=== PATIENT | male | born 1985 | race Caucasian/White ===

== ENCOUNTER 2016-10-23 21:27 | Inpatient (IN) | payer BC ==
[~2016-10-23] VITALS: Ht 162.6 cm; Wt 69.7 kg
[2016-10-23 23:31] VITALS: BP 109/73; TEMP 37.4; O2SAT 98; Ht 162.6 cm; Wt 69.7 kg
[2016-10-23] MEDS ORDERED: INSULIN IV INFUSION PROTOCOL STA (23:31)
[2016-10-23] MEDS ORDERED: GLUCOSE 10 TABS/TUBE PO PRN (23:45)
[2016-10-23] MEDS ORDERED: GLUCOSE 40% GEL 15 GM TUBE PO PRN (23:45)
[2016-10-23] MEDS ORDERED: DKA GOAL RANGE 150-250 mg/dl 1 EA ONE (23:45)
[2016-10-23] MEDS ORDERED: PENDING D5NSS IVF SCH (23:45)
[2016-10-23] MEDS ORDERED: MODERATE STRESS LEVEL ONE (23:45)
[2016-10-23] MEDS ORDERED: GLUCAGON FOR INJ 1 MG VIAL SQ PRN (23:45)
[2016-10-23] MEDS ORDERED: DC ALL PREVIOUSLY ORDERED DIABETES MEDS ONE (23:45)
[2016-10-23] MEDS ORDERED: DEXTROSE 50% 50 ML SYR IV PRN (23:45)
[2016-10-24] VITALS (20 sets, daily range): BP systolic 98–117; BP diastolic 65–80; PULSE 87–102; TEMP 37–38.4; O2SAT 93–98
[2016-10-24] LABS: COMPLETE YES; HEMATOCRIT 38.1 % (42-52); IG% 0.2 %; LYMPH % 14.4 %; LYMPH ABS # 1.17 K/uL (1.2-3.4); MEAN CELL VOLUME 79.4 fL (80-100); MEAN CORPUSCULAR HGB CONC 36.5 g/dl (32-36); MEAN PLATELET VOLUME 9.3 fL (7.4-10.4); MONO % 10.5 %; NEUT % 74.9 %; PLATELET COUNT 166 K/uL (130-400); WHITE BLOOD COUNT 8.11 K/uL (4.8-10.8)
[2016-10-24 00:07] LABS: ISTAT ARTERIAL BLOOD GAS HCO3 11 meq/L (19-24); ISTAT ARTERIAL BLOOD GAS PCO2 25 mmHg (35-46); ISTAT ARTERIAL BLOOD GAS PO2 95 mmHg (80-95); ISTAT ARTERIAL BLOOD GAS pH 7.23 (7.35-7.45); ISTAT CARBON DIOXIDE 11 mEq/l (24-31); ISTAT HEMATOCRIT 37 % (42-52); ISTAT HEMOGLOBIN 12.6 g/dl (14.0-18.0); ISTAT SODIUM 137 mEq/L (135-144)
[2016-10-24] MEDS ORDERED: INSULIN HUMAN REGULAR IV BOLUS 1.5 UNIT in SYRINGE 0 ML IV SCH (00:15)
[2016-10-24 00:18] LABS: BLOOD UREA NITROGEN 19 mg/dl (7-18); BUN/CREATININE RATIO 14.8 (10-20); CALCIUM 7.8 mg/dl (8.5-10.1); CARBON DIOXIDE 14 mmol/L (21-32); CHLORIDE 110 mmol/L (98-107); GLUCOSE 240 mg/dl (70-99); MAGNESIUM 2.2 mg/dl (1.8-2.4); POTASSIUM 4.3 mmol/L (3.5-5.1); SODIUM 139 mmol/L (136-145)
[2016-10-24] MEDS: INSULIN REGULAR 250 UNITS in SODIUM CHLORIDE 0.9% 250ML 250 ML IV SCH ×2 (00:22→11:30)
[2016-10-24 00:24] LABS: BETA-HYDROXYBUTYRATE 41.95 mg/dL (0.2-2.81); PHOSPHORUS 1.9 mg/dl (2.5-4.9)
--- NOTE | 2016-10-24 00:26 | Critical Care Consultation ---
Critical Care Consultation Date of Consultation: Oct 23, 2016. Late Entry Documentation Attending Physician: Radhames Amato MD Reason for Consultation: DKA History of Present Illness Attending: Dr. Jem Phillip Brandt Wheeler, preferred to be called [place], is a 31 yo male who was directly admitted from [facility] where he presented early today with intractable nausea, hyponatremia 129 (corrected Na of 136), acidosis (abg pH 7.15) and hyperglycemia (glucose 393). According to [facility] records the patient received 4L of IV NSS, 100u of Insulin Aspart @ 2u.hr, and eventually D5w with NSS @ 250 during transport. Pt corrected to the high 200's prior to leaving [facility]. His U/A there was +2 Ketones, neg CXR and EKG. Admission into [facility] was declined by their physician and Dr. Amato of [facility] accepted transfer here. Pt arrived to the unit alert and oriented but drowsy. His Eduarda, was present at the bedside. He stated that he has known he has "Type 2 diabetes for 12 years", at which point he received Insulin for the first and only time. He denies knowledge of prior DKA/hospitalization for hyperglycemia. He states he has never taken anything for his diabetes; including Metformin. He states he only occasionally takes albuterol for asthma, but can not identify triggers other than illness for his asthma. He denies polyuria, polydipsia, or other signs of hyperglycemia. He does not have a special diet. Pt states he had minimal abd pain the goes around the upper quadrants. He was not currently feeling nauseous on my exam, but had received Zofran prior to arrival. Pt states that he has had a cough, hot flashes and chills, general malaise and body aches since about Wednesday. His 3 children had recently all been sick with similar symptoms. Pt denies excessive use of ETOH. Occasional shots and rum, approx 2-3 times/month. He denies any significatn past medical history; including of gall stones. PT denied chest pain/pressure, awareness of tachyarrhythmias. Pt denied trouble breathing, shortness of breath, diarrhea, constipation, numbness/tingling of extremities. Past Medical/Surgical History Past Medical History: Asthma Diabetes Mellitus DKA Past Surgical History: Pt denies any prior surgical procedure Family History Mother and Grandmother DM2 Otherwise Pt denies any positives in Family history. 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 [employer]) Allergies Coded Allergies: No Known Allergies (Unverified , 10/24/16) Current Inpatient Medications Current Inpatient Medications Medications (Trade) Dose Ordered Sig/Dasha Route Start Time Stop Time Status Last Admin Dose Admin Insulin Aspart (novoLOG ASPART) SLIDING SCALE HS SC 10/24/16 08:00 11/23/16 07:59 Miscellaneous Information 1 ea 1 ea Q2H N/A 10/23/16 23:45 11/22/16 23:44 Insulin Human Regular/Sodium Chloride (novoLIN-R/Nss 250ml) 252.5 ml @ 0 mls/hr DAILY@1130 IV 10/24/16 00:15 11/23/16 00:14 Glucose (Glucose 40% Gel) UD PRN PO 10/23/16 23:45 11/22/16 23:44 Glucose (Glucose Chew Tab) 1 tabs UD PRN PO 10/23/16 23:45 11/22/16 23:44 Dextrose (Dextrose 50% 50ML Syringe) 50 ml UD PRN IV 10/23/16 23:45 11/22/16 23:44 Glucagon 1 mg 1 mg UD PRN SQ 10/23/16 23:45 11/22/16 23:44 Potassium Chloride/Dextrose/ Sod Cl (D5W And 1/2nss + 20meq KCl) 1,000 ml @ 200 mls/hr Q5H IV 10/24/16 00:15 11/23/16 00:14 UNV Review of Systems 12 systems reviewed and negative other than previously mentioned in the HPI. Physical Exam Date Time Temp Pulse Resp B/P Pulse Ox O2 Delivery O2 Flow Rate FiO2 10/23/16 23:31 37.4 18 109/73 98 Room Air Vital Signs - as noted Laboratory Data - as noted Physical Exam: General - NAD, drowsy Eyes - PERRL, EOMI No icterus, gaze conjugate ENT - Mucosa moist, no lesions or candidiasis Neck - Supple, trachea midline, no masses or lymphadenopathy, no JVD or bruits Lungs - No paradoxical chest wall movement, clear to auscultation bilaterally, slightly diminished in the bases, no wheezes, rales, or rhonchi Heart - Reg rate and rhythm, No murmur, rubs, clicks, or gallops appreciated Abdomen - BS present, no bruits noted, tympanic to percussion, soft, nontender, nondistended, no organomegaly Extremities - No edema, pedal pulses intact Neuro - A&O X 4 Strength extremities equal and appropriate bilaterally Reflexes: Bicep, brachioradialis, patellar, and plantar normal and equal CN:PERRL, EOMI, no facial asymmetry, uvula/tongue midline Laboratory Results Last 24 Hours Test 10/23/16 23:35 10/23/16 23:55 10/23/16 23:56 White Blood Count 8.11 K/uL Red Blood Count 4.80 M/uL Hemoglobin 13.9 g/dL Hematocrit 38.1 % Mean Corpuscular Volume 79.4 fL Mean Corpuscular Hemoglobin 29.0 pg Mean Corpuscular Hemoglobin Concent 36.5 g/dl Platelet Count 166 K/uL Mean Platelet Volume 9.3 fL Neutrophils (%) (Auto) 74.9 % Lymphocytes (%) (Auto) 14.4 % Monocytes (%) (Auto) 10.5 % Eosinophils (%) (Auto) 0.0 % Basophils (%) (Auto) 0.0 % Neutrophils # (Auto) 6.07 K/uL Lymphocytes # (Auto) 1.17 K/uL Monocytes # (Auto) 0.85 K/uL Eosinophils # (Auto) 0.00 K/uL Basophils # (Auto) 0.00 K/uL Bedside Hemoglobin 12.6 g/dl Bedside Hematocrit 37 % RDW Standard Deviation 36.6 fL RDW Coefficient of Variation 12.6 % Immature Granulocyte % (Auto) 0.2 % Immature Granulocyte # (Auto) 0.02 K/uL Bedside Blood Gas pH (LAB) 7.23 Bedside Blood Gas pCO2 (LAB) 25 mmHg Bedside Blood Gas pO2 (LAB) 95 mmHg Bedside Blood Gas HCO3 (LAB) 11 meq/L Bedside Blood Gas Total CO2 11 mEq/l Bedside Blood Gas Base Excess (LAB) -17.0 meq/L Bedside Blood Gas O2 Saturation 96.0 % Bedside Sodium 137 mEq/L Sodium Level 139 mmol/L Bedside Potassium 4.2 mEq/L Potassium Level 4.3 mmol/L Chloride Level 110 mmol/L Carbon Dioxide Level 14 mmol/L Anion Gap 15.0 mmol/L Blood Urea Nitrogen 19 mg/dl Creatinine 1.30 mg/dl Est Creatinine Clear Calc Drug Dose 69.0 ml/min Estimated GFR () 84.3 Estimated GFR (Non- 72.7 BUN/Creatinine Ratio 14.8 Random Glucose 240 mg/dl Calcium Level 7.8 mg/dl Phosphorus Level 1.9 mg/dl Magnesium Level 2.2 mg/dl Troponin I < 0.015 ng/ml Lipase 769 U/L Beta-Hydroxybutyric Acid 41.95 mg/dL Diagnostic Results CXR: at [facility] Per Record Normal EKG @ [facility] ICU: NSR 89bpm, QTc 425 Assessment & Plan (1) DKA (diabetic ketoacidoses) (2) Diabetes mellitus (3) Metabolic acidosis Endocrine: DKA Pt states DM2 since age 19. Denies prior DKA; however, did state he received Insulin to lower his sugar quickly when diagnosed. DKA likely secondary to non-compliance with DM and concurrent illness. Denies regular ETOH use, Unlikely Pancreatitis as Shorter Criteria < 3, trop Neg x 2 with NSR on EKG. PCR Flu Pending Anion Gap 15 * DKA Protocol Ordered * Glycemic Consult placed to pharmacy * Continue D5 with .045% NSS +20K @ 200mLs/hr * Insulin goal 150-200, K Goal 4-5 * Frequent Monitoring BUN, Electrolytes, pH, Glucose Electrolytes: Corrected Na 142 on admission K: 4.3 * Electrolytes q 4hrs * Continue Fluids as above * Continue to replete K in fluids, as it will drive intracellularly with correction of DKA: Goal 4-5 Cardiac: EKG reviewed, denies chest pain or discomfort * Repeat EKG in AM, Increased risk of arrhythmia secondary to electrolyte shifts in DKA * Monitor on telemetry ID: Currently Afebrile, WBC: 8.11 Lactic Acid: 1.9 ( [facility]) * Rule Out Infection * PCR Flu pending * CBC no leukocytosis or left shift * Monitor Fever Curve * Check Procalcitonin Pulmonary: 98% on room air Hx of Asthma * Supplemental O2 as needed * Duoneb PRN wheezing * Monitor on telemetry GI: Pt seen at [facility] for Vomiting and Abd Pain. Well controlled currently * DM 1 Diet as tolerated * No indication for GI Prophylaxis at this time : BUN/Cr: 19/1.3 * Follow Daily Labs * Monitor BUN q 4hrs now until DKA resolves * Fluids resuscitation as noted above in DKA Neuro: A & O x 4 No pain currently * Tylenol PO PRN Pain Access: [address], no indication for central/arterial access at this time. DVT Prophylaxis: SCDs in place, Heparin 5,000U sq Q8hrs CCT: 45 minutes; Not including any billable procedures. Thank you for including us in the care of this patient. Please review Dr. Jem Phillip's addendum for further recommendations. I agree with assessment and plan of Fara Krishna PA-C.
[2016-10-24 01:03] LABS: ALKALINE PHOSPHATASE 69 U/L (45-117); ALT/SGPT 30 U/L (12-78); AST/SGOT 13 U/L (15-37)
[2016-10-24] MEDS ORDERED: PHARMACY GLYCEMIC MGMT CONSULT PRN (01:21)
[2016-10-24] MEDS ORDERED: ACETAMINOPHEN 325 MG TAB PO PRN (01:30)
--- NOTE | 2016-10-24 01:50 | History and Physical ---
History & Physical Date & Time of Service: Oct 24, 2016 at 01:37 Chief Complaint: DKA Primary Care Physician: No Doctor, Assigned History of Present Illness Source: patient 31 y/o M w/history of diabetes - type is not clear - medical noncompliance. Presents as a direct transfer from an outside hospital due to DKA. Pt states that he has been having nausea and abdominal pain for up to one week. At the time of presentation, labs were consistent with severe DKA. He denies CP, SOB, fevers, diarrhea, dysuria. Past Medical/Surgical History DM - pt states he was diagnosed at age 15, possibly with type 2 which is unlikely. He states that he has not complied with medications for an extended period. 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 [employer] Smoking Status: Never Smoker Allergies Coded Allergies: No Known Allergies (Unverified , 10/24/16) Review of Systems Constitutional: + fatigue, + weakness, No chills, No fever, No sweats Eyes: No eye pain, No worsening of vision ENT: No hearing loss, No nasal symptoms, No unusual epistaxis Respiratory: No cough, No sputum, No wheezing Cardiovascular: No PND, No chest pain, No orthopnea Abdomen: + nausea, + pain, No diarrhea, No vomiting Musculoskeletal: No joint pain, No muscle pain Genitourinary - Male: No dysuria, No hematuria, No urinary frequency, No urinary urgency Neurologic: + weakness, No memory loss, No paralysis Psychiatric: No depression symptoms Endocrine: + fatigue Hematologic / Lymphatic: No abnormal bleeding/bruising Integumentary: No rash Allergic / Immunologic: No environmental allergies Physical Exam Vital Signs Date Time Temp Pulse Resp B/P Pulse Ox O2 Delivery O2 Flow Rate FiO2 10/24/16 00:00 98 Room Air 10/24/16 00:00 37.4 91 19 111/80 98 Room Air 10/23/16 23:31 37.4 18 109/73 98 Room Air General Appearance: no apparent distress, + pertinent finding (Pt appears weak and dehydrated) Head: normocephalic, atraumatic Eyes: normal inspection, EOMI ENT: normal ENT inspection, hearing grossly normal, TMs normal, + pertinent finding (dry mucosal membranes) Neck: supple, no adenopathy, thyroid normal, no JVD Respiratory/Chest: chest non-tender, lungs clear, normal breath sounds Cardiovascular: regular rate, rhythm, no edema, no gallop Abdomen/GI: normal bowel sounds, non tender, soft Back: normal inspection, no CVA tenderness Extremities/Musculoskelatal: normal inspection, no calf tenderness, normal capillary refill, no pedal edema, normal range of motion 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, no motor/sensory deficits, alert, normal mood/affect, normal reflexes, oriented x 3 Skin: normal color, warm/dry, no rash Diagnostics Laboratory Results Results Past 24 Hours Test 10/23/16 23:35 10/23/16 23:55 10/24/16 00:09 10/24/16 00:30 Range/Units White Blood Count 8.11 4.8-10.8 K/uL Red Blood Count 4.80 4.7-6.1 M/uL Hemoglobin 13.9 14.0-18.0 g/dL Hematocrit 38.1 42-52 % Mean Corpuscular Volume 79.4 80-100 fL Mean Corpuscular Hemoglobin 29.0 25-34 pg Mean Corpuscular Hemoglobin Concent 36.5 32-36 g/dl Platelet Count 166 130-400 K/uL Mean Platelet Volume 9.3 7.4-10.4 fL Neutrophils (%) (Auto) 74.9 % Lymphocytes (%) (Auto) 14.4 % Monocytes (%) (Auto) 10.5 % Eosinophils (%) (Auto) 0.0 % Basophils (%) (Auto) 0.0 % Neutrophils # (Auto) 6.07 1.4-6.5 K/uL Lymphocytes # (Auto) 1.17 1.2-3.4 K/uL Monocytes # (Auto) 0.85 0.11-0.59 K/uL Eosinophils # (Auto) 0.00 0-0.5 K/uL Basophils # (Auto) 0.00 0-0.2 K/uL Bedside Hemoglobin 12.6 14.0-18.0 g/dl Bedside Hematocrit 37 42-52 % RDW Standard Deviation 36.6 36.4-46.3 fL RDW Coefficient of Variation 12.6 11.5-14.5 % Immature Granulocyte % (Auto) 0.2 % Immature Granulocyte # (Auto) 0.02 0.00-0.02 K/uL Bedside Blood Gas pH (LAB) 7.23 7.35-7.45 Bedside Blood Gas pCO2 (LAB) 25 35-46 mmHg Bedside Blood Gas pO2 (LAB) 95 80-95 mmHg Bedside Blood Gas HCO3 (LAB) 11 19-24 meq/L Bedside Blood Gas Total CO2 11 24-31 mEq/l Bedside Blood Gas Base Excess (LAB) -17.0 -9-1.8 meq/L Bedside Blood Gas O2 Saturation 96.0 90-95 % Bedside Sodium 137 135-144 mEq/L Sodium Level 139 136-145 mmol/L Bedside Potassium 4.2 3.3-5.0 mEq/L Potassium Level 4.3 3.5-5.1 mmol/L Chloride Level 110 98-107 mmol/L Carbon Dioxide Level 14 21-32 mmol/L Anion Gap 15.0 3-11 mmol/L Blood Urea Nitrogen 19 7-18 mg/dl Creatinine 1.30 0.60-1.40 mg/dl Est Creatinine Clear Calc Drug Dose 69.0 ml/min Estimated GFR () 84.3 Estimated GFR (Non- 72.7 BUN/Creatinine Ratio 14.8 10-20 Random Glucose 240 70-99 mg/dl Calcium Level 7.8 8.5-10.1 mg/dl Phosphorus Level 1.9 2.5-4.9 mg/dl Magnesium Level 2.2 1.8-2.4 mg/dl Total Bilirubin 0.4 0.2-1 mg/dl Direct Bilirubin 0.1 0-0.2 mg/dl Aspartate Amino Transf (AST/SGOT) 13 15-37 U/L Alanine Aminotransferase (ALT/SGPT) 30 12-78 U/L Alkaline Phosphatase 69 45-117 U/L Troponin I < 0.015 0-0.045 ng/ml Total Protein 7.3 6.4-8.2 gm/dl Albumin 3.3 3.4-5.0 gm/dl Lipase 769 73-393 U/L Beta-Hydroxybutyric Acid 41.95 0.2-2.81 mg/dL Bedside Glucose 264 70-99 mg/dl Test 10/24/16 01:09 Range/Units Bedside Glucose 243 70-99 mg/dl Microbiology Results 10/23/16 MRSA DNA Surveillance Screen - Final, Complete Specimen Negative for MRSA by DNA Probe Impression Assessment and Plan 31 y/o M w/history of diabetes - type is not clear - medical noncompliance. Presents as a direct transfer from an outside hospital due to DKA. Pt states that he has been having nausea and abdominal pain for up to one week. At the time of presentation, labs were consistent with severe DKA. He denies CP, SOB, fevers, diarrhea, dysuria. Severe DKA - labs improving with protocol including insulin drip, aggressive IVF and electrolyte replacement as needed. Will continue to monitor in the ICU until ketones clear, gap closes and pt is of a drip. Outreach Specialist was consulted. BMP, Mag, Phos, ABG or VBG q4h He will need training prior to d/c as he has not previously used insulin. Full code - Heparin prophylaxis Total time for this admit including review of labs , meds - discussion with pt and attending at [facility] - critical care time - 38 min Level of Care Critical Care Advanced Directives Existing Living Will: No Existing Power of Pool Installer: No Resuscitation Status FULL RESUSCITATION VTE Prophylaxis VTE Risk Assessment Done? Y/N: Yes Risk Level: Low Given or contraindicated: Unfractionated heparin SQ
[2016-10-24] MEDS: D5W AND 1/2NSS + 20MEQ KCL 1,000 ML IV SCH ×2 (01:57→06:24)
[2016-10-24 02:59] LABS: INFLUENZA A PCR Neg for Influ A (NEG)
[2016-10-24 03:01] LABS: INFLUENZA B PCR POS for Influ B (NEG)
[2016-10-24] MEDS ORDERED: OSELTAMIVIR PHOSPHATE 75 MG CAP PO ONE (03:01)
[2016-10-24 04:18] LABS: BASO % 0.2 %; BASO ABS # 0.01 K/uL (0-0.2); COMPLETE YES; HEMATOCRIT 37.2 % (42-52); IG% 0.2 %; LYMPH % 16.2 %; LYMPH ABS # 1.08 K/uL (1.2-3.4); MEAN CELL VOLUME 81.2 fL (80-100); MEAN CORPUSCULAR HGB CONC 35.8 g/dl (32-36); NEUT % 74.4 %; PLATELET COUNT 158 K/uL (130-400); RED BLOOD COUNT 4.58 M/uL (4.7-6.1); WHITE BLOOD COUNT 6.65 K/uL (4.8-10.8)
[2016-10-24 04:29] LABS: INR 0.9 (0.9-1.1); PARTIAL THROMBOPLASTIN RATIO 1.1; PROTHROMBIN TIME (PATIENT) 10.1 SECONDS (9.0-12.0)
[2016-10-24 04:35] LABS: BUN/CREATININE RATIO 13.2 (10-20); CALCIUM 7.7 mg/dl (8.5-10.1); CREATININE 1.3 mg/dl (0.60-1.40); PHOSPHORUS 1.7 mg/dl (2.5-4.9); POTASSIUM 4.2 mmol/L (3.5-5.1)
[2016-10-24 04:57] LABS: URINE APPEARANCE CLEAR (CLEAR); URINE BILIRUBIN NEG (NEG); URINE COLOR YELLOW; URINE NITRITE NEG (NEG); URINE PH 5.5 (4.5-7.5); URINE SPECIFIC GRAVITY 1.028 (1.000-1.030); UROBILINOGEN NEG (NEG)
[2016-10-24 04:58] LABS: MANUAL MICROSCOPIC REQUIRED? NO; REVIEW REQ? NO
[2016-10-24] MEDS: HEPARIN SOD 5000 UNIT/0.5 ML CARP SQ SCH ×3 (06:00→21:01)
[2016-10-24 06:04] LABS: ESTIMATED AVERAGE GLUCOSE 309 mg/dl; HA1C FLAG Normal (Normal)
[2016-10-24] MEDS ORDERED: INSULIN PROTOCOL GOAL RANGE ONE (07:45)
[2016-10-24] MEDS ORDERED: INSULIN ASPART 100 UNITS/ML 3 ML PEN SC SCH (08:00)
[2016-10-24] MEDS: OSELTAMIVIR PHOSPHATE 75 MG CAP PO SCH ×2 (08:07→19:51)
[2016-10-24 08:34] LABS: BUN/CREATININE RATIO 13.3 (10-20); CALCIUM 7.9 mg/dl (8.5-10.1); CREATININE 1.1 mg/dl (0.60-1.40); MAGNESIUM 1.9 mg/dl (1.8-2.4); POTASSIUM 3.9 mmol/L (3.5-5.1)
--- NOTE | 2016-10-24 08:39 | Critical Care Progress Note ---
Critical Care Progress Note Date of Service Oct 24, 2016. Attending Dr. Phillip Assessment & Plan (1) DKA (diabetic ketoacidoses) (2) Diabetes mellitus (3) Metabolic acidosis (4) Hemoglobin A1c 8.0 percent or greater (5) Influenza B Endocrine: DKA Pt states DM2 since age 19. Denies prior DKA; however, did state he received Insulin to lower his sugar quickly when diagnosed. DKA likely secondary to non-compliance with DM and concurrent illness. Denies regular ETOH use, Unlikely Pancreatitis as Brian Criteria < 3, trop Neg x 2 with NSR on EKG. PCR Flu Pending Anion Gap now 12 * DKA Protocol Ordered * Glycemic Consult placed to pharmacy * Continue D5 with .045% NSS +20K @ 200mLs/hr * Insulin goal 150-200, K Goal 4-5 * Frequent Monitoring BUN, Electrolytes, pH, Glucose Electrolytes: Corrected Na 142 on admission K: 4.3 * Electrolytes q 4hrs * Continue Fluids as above * Continue to replete K in fluids, as it will drive intracellularly with correction of DKA: Goal 4-5 Cardiac: EKG reviewed, denies chest pain or discomfort * Repeat EKG in AM, Increased risk of arrhythmia secondary to electrolyte shifts in DKA * Monitor on telemetry ID: Currently Afebrile, WBC: 8.11 Lactic Acid: 1.9 ( [facility]) On Tamiflu for influenza B5 days of treatment Pulmonary: 98% on room air Hx of Asthma GI: Pt seen at [facility] for Vomiting and Abd Pain. Well controlled currently * DM 1 Diet as tolerated * No indication for GI Prophylaxis at this time : BUN/Cr: 19/1.3 * Follow Daily Labs * Monitor BUN q 4hrs now until DKA resolves * Fluids resuscitation as noted above in DKA Neuro: A & O x 4 No pain currently * Tylenol PO PRN Pain Patient significantly improved, tolerating oral medications as soon as transitioned to subcutaneous insulin will be stable for downgraded to MedSur floor. Consults & Procedures Consultants: Glycemic control Critical care medicine: Kenji Procedures: Not applicable Data Medications: Current Inpatient Medications Medications (Trade) Dose Ordered Sig/Dasha Route Start Time Stop Time Status Last Admin Dose Admin Insulin Aspart SLIDING SCALE [facility] SC 10/24/16 08:00 11/23/16 07:59 10/24/16 08:15 2 UNITS Insulin Human Regular/Sodium Chloride (novoLIN-R/Nss 250ml) 252.5 ml @ 0 mls/hr DAILY@1130 IV 10/24/16 00:15 11/23/16 00:14 10/24/16 00:22 1.5 MLS/HR Glucose (Glucose 40% Gel) UD PRN PO 10/23/16 23:45 11/22/16 23:44 Glucose (Glucose Chew Tab) 1 tabs UD PRN PO 10/23/16 23:45 11/22/16 23:44 Dextrose (Dextrose 50% 50ML Syringe) 50 ml UD PRN IV 10/23/16 23:45 11/22/16 23:44 Glucagon 1 mg 1 mg UD PRN SQ 10/23/16 23:45 11/22/16 23:44 Potassium Chloride/Dextrose/ Sod Cl (D5W And 1/2nss + 20meq KCl) 1,000 ml @ 200 mls/hr Q5H IV 10/24/16 01:30 11/23/16 00:14 10/24/16 06:24 200 MLS/HR Miscellaneous Information (Consult Glycemic Management Pharmacy) 1 ea UD PRN N/A 10/24/16 01:21 11/23/16 01:20 Heparin Sodium (Porcine) (Heparin Sq 5000 Unit/0.5ml) 5,000 unit Q8 SQ 10/24/16 06:00 11/23/16 01:29 10/24/16 06:00 5,000 UNIT Acetaminophen (Tylenol Tab) 650 mg Q4H PRN PO 10/24/16 01:30 11/23/16 01:29 Oseltamivir Phosphate (Tamiflu Cap) 75 mg BID PO 10/24/16 09:00 10/29/16 08:59 10/24/16 08:07 75 MG I & O: 24-Hour Column 10/24/16 08:00 Intake Total 2204 ml Output Total 700 ml Balance 1504 ml Vital Signs: Date Time Temp Pulse Resp B/P Pulse Ox O2 Delivery O2 Flow Rate FiO2 10/24/16 06:00 101 19 113/73 93 10/24/16 04:00 94 Room Air 10/24/16 04:00 37.0 91 111/71 94 Room Air 10/24/16 02:01 95 16 108/67 96 10/24/16 00:00 98 Room Air 10/24/16 00:00 37.4 91 19 111/80 98 Room Air 10/23/16 23:31 37.4 18 109/73 98 Room Air Laboratory Results: Last 24 Hours Test 10/23/16 23:55 10/24/16 00:09 10/24/16 00:30 10/24/16 01:09 White Blood Count 8.11 K/uL Red Blood Count 4.80 M/uL Hemoglobin 13.9 g/dL Hematocrit 38.1 % Mean Corpuscular Volume 79.4 fL Mean Corpuscular Hemoglobin 29.0 pg Mean Corpuscular Hemoglobin Concent 36.5 g/dl Platelet Count 166 K/uL Mean Platelet Volume 9.3 fL Neutrophils (%) (Auto) 74.9 % Lymphocytes (%) (Auto) 14.4 % Monocytes (%) (Auto) 10.5 % Eosinophils (%) (Auto) 0.0 % Basophils (%) (Auto) 0.0 % Neutrophils # (Auto) 6.07 K/uL Lymphocytes # (Auto) 1.17 K/uL Monocytes # (Auto) 0.85 K/uL Eosinophils # (Auto) 0.00 K/uL Basophils # (Auto) 0.00 K/uL Bedside Hemoglobin 12.6 g/dl Bedside Hematocrit 37 % RDW Standard Deviation 36.6 fL RDW Coefficient of Variation 12.6 % Immature Granulocyte % (Auto) 0.2 % Immature Granulocyte # (Auto) 0.02 K/uL Bedside Blood Gas pH (LAB) 7.23 Bedside Blood Gas pCO2 (LAB) 25 mmHg Bedside Blood Gas pO2 (LAB) 95 mmHg Bedside Blood Gas HCO3 (LAB) 11 meq/L Bedside Blood Gas Total CO2 11 mEq/l Bedside Blood Gas Base Excess (LAB) -17.0 meq/L Bedside Blood Gas O2 Saturation 96.0 % Bedside Sodium 137 mEq/L Sodium Level 139 mmol/L Bedside Potassium 4.2 mEq/L Potassium Level 4.3 mmol/L Chloride Level 110 mmol/L Carbon Dioxide Level 14 mmol/L Anion Gap 15.0 mmol/L Blood Urea Nitrogen 19 mg/dl Creatinine 1.30 mg/dl Est Creatinine Clear Calc Drug Dose 69.0 ml/min Estimated GFR () 84.3 Estimated GFR (Non- 72.7 BUN/Creatinine Ratio 14.8 Random Glucose 240 mg/dl Estimated Average Glucose 309 mg/dl Hemoglobin A1c 12.4 % Calcium Level 7.8 mg/dl Phosphorus Level 1.9 mg/dl Magnesium Level 2.2 mg/dl Total Bilirubin 0.4 mg/dl Direct Bilirubin 0.1 mg/dl Aspartate Amino Transf (AST/SGOT) 13 U/L Alanine Aminotransferase (ALT/SGPT) 30 U/L Alkaline Phosphatase 69 U/L Troponin I < 0.015 ng/ml Total Protein 7.3 gm/dl Albumin 3.3 gm/dl Lipase 769 U/L Beta-Hydroxybutyric Acid 41.95 mg/dL Procalcitonin 0.23 ng/mL Influenza Type A (RT-PCR) Neg for Influ A Influenza Type B (RT-PCR) POS for Influ B Bedside Glucose 264 mg/dl 243 mg/dl Test 10/24/16 02:03 10/24/16 02:58 10/24/16 04:07 10/24/16 04:13 Bedside Glucose 273 mg/dl 255 mg/dl 236 mg/dl White Blood Count 6.65 K/uL Red Blood Count 4.58 M/uL Hemoglobin 13.3 g/dL Hematocrit 37.2 % Mean Corpuscular Volume 81.2 fL Mean Corpuscular Hemoglobin 29.0 pg Mean Corpuscular Hemoglobin Concent 35.8 g/dl Platelet Count 158 K/uL Mean Platelet Volume 10.0 fL Neutrophils (%) (Auto) 74.4 % Lymphocytes (%) (Auto) 16.2 % Monocytes (%) (Auto) 9.0 % Eosinophils (%) (Auto) 0.0 % Basophils (%) (Auto) 0.2 % Neutrophils # (Auto) 4.95 K/uL Lymphocytes # (Auto) 1.08 K/uL Monocytes # (Auto) 0.60 K/uL Eosinophils # (Auto) 0.00 K/uL Basophils # (Auto) 0.01 K/uL RDW Standard Deviation 37.8 fL RDW Coefficient of Variation 12.8 % Immature Granulocyte % (Auto) 0.2 % Immature Granulocyte # (Auto) 0.01 K/uL Prothrombin Time 10.1 SECONDS Prothromb Time International Ratio 0.9 Activated Partial Thromboplast Time 28.6 SECONDS Partial Thromboplastin Ratio 1.1 Venous Blood pH 7.30 Sodium Level 137 mmol/L Potassium Level 4.2 mmol/L Chloride Level 107 mmol/L Carbon Dioxide Level 18 mmol/L Anion Gap 12.0 mmol/L Blood Urea Nitrogen 17 mg/dl Creatinine 1.30 mg/dl Est Creatinine Clear Calc Drug Dose 69.0 ml/min Estimated GFR () 84.3 Estimated GFR (Non- 72.7 BUN/Creatinine Ratio 13.2 Random Glucose 265 mg/dl Calcium Level 7.7 mg/dl Phosphorus Level 1.7 mg/dl Magnesium Level 2.0 mg/dl Test 10/24/16 04:20 10/24/16 05:23 10/24/16 05:59 10/24/16 08:03 Urine Color YELLOW Urine Appearance CLEAR Urine pH 5.5 Urine Specific [place] 1.028 Urine Protein 1+ Urine Glucose (UA) 3+ Urine Ketones 3+ Urine Occult Blood TRACE Urine Nitrite NEG Urine Bilirubin NEG Urine Urobilinogen NEG Urine Leukocyte Esterase NEG Urine WBC (Auto) 1-5 /hpf Urine RBC (Auto) 0-4 /hpf Urine Hyaline Casts (Auto) 1-5 /lpf Urine Epithelial Cells (Auto) 5-10 /lpf Urine Bacteria (Auto) NEG Bedside Glucose 248 mg/dl 248 mg/dl Venous Blood pH 7.35 Problem Qualifiers (1) DKA (diabetic ketoacidoses): Diabetes mellitus type: due to underlying condition
[2016-10-24 08:53] LABS: PHOSPHORUS 1.2 mg/dl (2.5-4.9)
[2016-10-24] MEDS ORDERED: INSULIN GLARGINE SOLOSTAR 100 UNITS/ML 3 ML PEN SC ONE (09:30)
[2016-10-24] MEDS ORDERED: POTASSIUM PHOS 3 MMOL/1 ML INFUSION IV STA ×2 (09:41→23:55)
[2016-10-24] MEDS ORDERED: POTASSIUM PHOSPHATE INJ 30 MMOL in SODIUM CHLORIDE 0.9% 500ML 500 ML IV SCH (10:00)
[2016-10-24] MEDS: NSS + 20MEQ KCL 1000ML 1,000 ML IV SCH ×2 (10:09→19:39)
--- NOTE | 2016-10-24 11:20 | Family Medicine Progress Note ---
Progress Note Date of Service Oct 24, 2016. Subjective Pt evaluation today including: conversation w/ patient, physical exam, chart review, lab review Pain: Denies Voiding: no voiding problems Patient was seen at the bedside. He states that at home he hasn't been taking any medication for his diabetics. He was diagnosed with DM about 12 yrs ago and initially he was started on insulin. Couple of yrs ago he was on Metformin but self quit without seeing a doctor. On Wednesday he was feeling nauseated and vomited couple which brought him to the [facility]. He is feeling fatigue and weak. Still have cough but not bringing up anything. Decrease in appetite. Denies nausea, vomiting, or abdominal pain. He feels better than yesterday. His 3 children and girlfriend are also sick at home with flu like symptoms. Constitutional: + fatigue, + weakness, No chills, No fever ENT: No nasal symptoms, No sore throat Respiratory: + cough, No dyspnea at rest, No dyspnea on exertion, No shortness of breath, No sputum, No wheezing Cardiovascular: No chest pain, No edema Abdomen: No constipation, No diarrhea, No nausea, No pain, No vomiting Musculoskeletal: + muscle pain Male : No dysuria Endo: + fatigue Skin: No rash Medications Current Inpatient Medications Medications (Trade) Dose Ordered Sig/Dasha Route Start Time Stop Time Status Last Admin Dose Admin Insulin Human Regular/Sodium Chloride (novoLIN-R/Nss 250ml) 252.5 ml @ 0 mls/hr DAILY@1130 IV 10/24/16 00:15 10/24/16 13:00 10/24/16 00:22 1.5 MLS/HR Glucose (Glucose 40% Gel) UD PRN PO 10/23/16 23:45 11/22/16 23:44 Glucose (Glucose Chew Tab) 1 tabs UD PRN PO 10/23/16 23:45 11/22/16 23:44 Dextrose (Dextrose 50% 50ML Syringe) 50 ml UD PRN IV 10/23/16 23:45 11/22/16 23:44 Glucagon (Glucagon Inj) 1 mg UD PRN SQ 10/23/16 23:45 11/22/16 23:44 Miscellaneous Information (Consult Glycemic Management Pharmacy) 1 ea UD PRN N/A 10/24/16 01:21 11/23/16 01:20 Heparin Sodium (Porcine) (Heparin Sq 5000 Unit/0.5ml) 5,000 unit Q8 SQ 10/24/16 06:00 11/23/16 01:29 10/24/16 06:00 5,000 UNIT Acetaminophen (Tylenol Tab) 650 mg Q4H PRN PO 10/24/16 01:30 11/23/16 01:29 Oseltamivir Phosphate 75 mg 75 mg BID PO 10/24/16 09:00 10/29/16 08:59 10/24/16 08:07 75 MG Potassium Chloride/Sodium Chloride (Nss + 20meq KCl 1000ml) 1,000 ml @ 100 mls/hr Q10H IV 10/24/16 09:30 11/23/16 09:29 10/24/16 10:09 100 MLS/HR Insulin Aspart (novoLOG ASPART) SLIDING SCALE ACHS SC 10/24/16 11:00 11/23/16 10:59 Miscellaneous 1 ea 1 ea TODAY@1300 ONCE N/A 10/24/16 13:00 10/24/16 13:01 Potassium Phosphate/Sodium Chloride (Potassium Phosphate Inj/Nss 500ml) 510 ml @ 102 mls/hr TODAY@1000 IV 10/24/16 10:00 10/24/16 14:59 10/24/16 10:10 102 MLS/HR Objective Vital Signs Date Time Temp Pulse Resp B/P Pulse Ox O2 Delivery O2 Flow Rate FiO2 10/24/16 08:00 94 Room Air 10/24/16 06:00 101 19 113/73 93 10/24/16 04:00 94 Room Air 10/24/16 04:00 37.0 91 111/71 94 Room Air 10/24/16 02:01 95 16 108/67 96 10/24/16 00:00 98 Room Air 10/24/16 00:00 37.4 91 19 111/80 98 Room Air 10/23/16 23:31 37.4 18 109/73 98 Room Air Physical Exam General Appearance: WD/WN, no apparent distress Neck: supple, trachea midline Respiratory/Chest: chest non-tender, lungs clear, normal breath sounds, no respiratory distress, no accessory muscle use Cardiovascular: regular rate, rhythm, no edema, no murmur Abdomen: normal bowel sounds, non tender, soft Extremities: non-tender, no pedal edema Neurologic/Psychiatric: alert, normal mood/affect, oriented x 3 Skin: normal color, warm/dry, no rash Laboratory Results Results Past 24 Hours Test 10/23/16 23:55 10/24/16 00:09 10/24/16 00:30 10/24/16 01:09 Range/Units White Blood Count 8.11 4.8-10.8 K/uL Red Blood Count 4.80 4.7-6.1 M/uL Hemoglobin 13.9 14.0-18.0 g/dL Hematocrit 38.1 42-52 % Mean Corpuscular Volume 79.4 80-100 fL Mean Corpuscular Hemoglobin 29.0 25-34 pg Mean Corpuscular Hemoglobin Concent 36.5 32-36 g/dl Platelet Count 166 130-400 K/uL Mean Platelet Volume 9.3 7.4-10.4 fL Neutrophils (%) (Auto) 74.9 % Lymphocytes (%) (Auto) 14.4 % Monocytes (%) (Auto) 10.5 % Eosinophils (%) (Auto) 0.0 % Basophils (%) (Auto) 0.0 % Neutrophils # (Auto) 6.07 1.4-6.5 K/uL Lymphocytes # (Auto) 1.17 1.2-3.4 K/uL Monocytes # (Auto) 0.85 0.11-0.59 K/uL Eosinophils # (Auto) 0.00 0-0.5 K/uL Basophils # (Auto) 0.00 0-0.2 K/uL Bedside Hemoglobin 12.6 14.0-18.0 g/dl Bedside Hematocrit 37 42-52 % RDW Standard Deviation 36.6 36.4-46.3 fL RDW Coefficient of Variation 12.6 11.5-14.5 % Immature Granulocyte % (Auto) 0.2 % Immature Granulocyte # (Auto) 0.02 0.00-0.02 K/uL Bedside Blood Gas pH (LAB) 7.23 7.35-7.45 Bedside Blood Gas pCO2 (LAB) 25 35-46 mmHg Bedside Blood Gas pO2 (LAB) 95 80-95 mmHg Bedside Blood Gas HCO3 (LAB) 11 19-24 meq/L Bedside Blood Gas Total CO2 11 24-31 mEq/l Bedside Blood Gas Base Excess (LAB) -17.0 -9-1.8 meq/L Bedside Blood Gas O2 Saturation 96.0 90-95 % Bedside Sodium 137 135-144 mEq/L Sodium Level 139 136-145 mmol/L Bedside Potassium 4.2 3.3-5.0 mEq/L Potassium Level 4.3 3.5-5.1 mmol/L Chloride Level 110 98-107 mmol/L Carbon Dioxide Level 14 21-32 mmol/L Anion Gap 15.0 3-11 mmol/L Blood Urea Nitrogen 19 7-18 mg/dl Creatinine 1.30 0.60-1.40 mg/dl Est Creatinine Clear Calc Drug Dose 69.0 ml/min Estimated GFR () 84.3 Estimated GFR (Non- 72.7 BUN/Creatinine Ratio 14.8 10-20 Random Glucose 240 70-99 mg/dl Estimated Average Glucose 309 mg/dl Hemoglobin A1c 12.4 4.5-5.6 % Calcium Level 7.8 8.5-10.1 mg/dl Phosphorus Level 1.9 2.5-4.9 mg/dl Magnesium Level 2.2 1.8-2.4 mg/dl Total Bilirubin 0.4 0.2-1 mg/dl Direct Bilirubin 0.1 0-0.2 mg/dl Aspartate Amino Transf (AST/SGOT) 13 15-37 U/L Alanine Aminotransferase (ALT/SGPT) 30 12-78 U/L Alkaline Phosphatase 69 45-117 U/L Troponin I < 0.015 0-0.045 ng/ml Total Protein 7.3 6.4-8.2 gm/dl Albumin 3.3 3.4-5.0 gm/dl Lipase 769 73-393 U/L Beta-Hydroxybutyric Acid 41.95 0.2-2.81 mg/dL Procalcitonin 0.23 0-0.5 ng/mL Influenza Type A (RT-PCR) Neg for Influ A NEG Influenza Type B (RT-PCR) POS for Influ B NEG Bedside Glucose 264 243 70-99 mg/dl Test 10/24/16 02:03 10/24/16 02:58 10/24/16 04:07 10/24/16 04:13 Range/Units Bedside Glucose 273 255 236 70-99 mg/dl White Blood Count 6.65 4.8-10.8 K/uL Red Blood Count 4.58 4.7-6.1 M/uL Hemoglobin 13.3 14.0-18.0 g/dL Hematocrit 37.2 42-52 % Mean Corpuscular Volume 81.2 80-100 fL Mean Corpuscular Hemoglobin 29.0 25-34 pg Mean Corpuscular Hemoglobin Concent 35.8 32-36 g/dl Platelet Count 158 130-400 K/uL Mean Platelet Volume 10.0 7.4-10.4 fL Neutrophils (%) (Auto) 74.4 % Lymphocytes (%) (Auto) 16.2 % Monocytes (%) (Auto) 9.0 % Eosinophils (%) (Auto) 0.0 % Basophils (%) (Auto) 0.2 % Neutrophils # (Auto) 4.95 1.4-6.5 K/uL Lymphocytes # (Auto) 1.08 1.2-3.4 K/uL Monocytes # (Auto) 0.60 0.11-0.59 K/uL Eosinophils # (Auto) 0.00 0-0.5 K/uL Basophils # (Auto) 0.01 0-0.2 K/uL RDW Standard Deviation 37.8 36.4-46.3 fL RDW Coefficient of Variation 12.8 11.5-14.5 % Immature Granulocyte % (Auto) 0.2 % Immature Granulocyte # (Auto) 0.01 0.00-0.02 K/uL Prothrombin Time 10.1 9.0-12.0 SECONDS Prothromb Time International Ratio 0.9 0.9-1.1 Activated Partial Thromboplast Time 28.6 21.0-31.0 SECONDS Partial Thromboplastin Ratio 1.1 Venous Blood pH 7.30 7.36-7.41 Sodium Level 137 136-145 mmol/L Potassium Level 4.2 3.5-5.1 mmol/L Chloride Level 107 98-107 mmol/L Carbon Dioxide Level 18 21-32 mmol/L Anion Gap 12.0 3-11 mmol/L Blood Urea Nitrogen 17 7-18 mg/dl Creatinine 1.30 0.60-1.40 mg/dl Est Creatinine Clear Calc Drug Dose 69.0 ml/min Estimated GFR () 84.3 Estimated GFR (Non- 72.7 BUN/Creatinine Ratio 13.2 10-20 Random Glucose 265 70-99 mg/dl Calcium Level 7.7 8.5-10.1 mg/dl Phosphorus Level 1.7 2.5-4.9 mg/dl Magnesium Level 2.0 1.8-2.4 mg/dl Test 10/24/16 04:20 10/24/16 05:23 10/24/16 05:59 10/24/16 08:03 Range/Units Urine Color YELLOW Urine Appearance CLEAR CLEAR Urine pH 5.5 4.5-7.5 Urine Specific [facility] 1.028 1.000-1.030 Urine Protein 1+ NEG Urine Glucose (UA) 3+ NEG Urine Ketones 3+ NEG Urine Occult Blood TRACE NEG Urine Nitrite NEG NEG Urine Bilirubin NEG NEG Urine Urobilinogen NEG NEG Urine Leukocyte Esterase NEG NEG Urine WBC (Auto) 1-5 0-5 /hpf Urine RBC (Auto) 0-4 0-4 /hpf Urine Hyaline Casts (Auto) 1-5 0-5 /lpf Urine Epithelial Cells (Auto) 5-10 0-5 /lpf Urine Bacteria (Auto) NEG NEG Bedside Glucose 248 248 70-99 mg/dl Venous Blood pH 7.35 7.36-7.41 Sodium Level 134 136-145 mmol/L Potassium Level 3.9 3.5-5.1 mmol/L Chloride Level 106 98-107 mmol/L Carbon Dioxide Level 17 21-32 mmol/L Anion Gap 11.0 3-11 mmol/L Blood Urea Nitrogen 15 7-18 mg/dl Creatinine 1.10 0.60-1.40 mg/dl Est Creatinine Clear Calc Drug Dose 81.5 ml/min Estimated GFR () 103.1 Estimated GFR (Non- 89.0 BUN/Creatinine Ratio 13.3 10-20 Random Glucose 275 70-99 mg/dl Calcium Level 7.9 8.5-10.1 mg/dl Phosphorus Level 1.2 2.5-4.9 mg/dl Magnesium Level 1.9 1.8-2.4 mg/dl Test 10/24/16 08:07 10/24/16 09:06 10/24/16 10:07 Range/Units Bedside Glucose 275 281 228 70-99 mg/dl Microbiology Results 10/23/16 MRSA DNA Surveillance Screen - Final, Complete Specimen Negative for MRSA by DNA Probe Assessment and Plan This is a 31 y/o male with history of DM presented to the ED from [facility] with DKA. Influenza was positive, stared on Tamiflu. Patient is transitioned to SQ insulin today. Patient is transferred from ICU to Tele. 1. Diabetics Ketoacidosis - Most likely 2/2 to medical non complacence and illness (influenza) - On DKA protocol - Glycemic Consult is in placed and pharmacy is following - S/p Insulin drip - Patient is transitioned to SQ insulin - Currently on NSS+20 meq KCL @100mls/hr - Given 30mmol of potassium phospate given low phosphate (1.2) - Monitoring electrolytes, BUN, glucose q4h and replete electrolytes if needed 2. DM - Patient states that he was diagnosed with type II DM about 12 yrs ago. He was on Metformin couple of yrs ago and stop randomly - Continue with Insulin and Sliding scale - HgbA1c 12.4 - Patient will probably need education and training prior to d/c 3. Influenza - Patient is positive for Influenza B - C/w Tamiflu 75mg BID 4. DVT prophylaxis - Heparin 5. Code Status - Full code Reviewed: Pt Seen/Exam by Me History Pt is tired, but feeling better overall. No further n/v, abd pain. Denies chest pain or SOB. Pt states that he was dx with DM at age 15 after having weakness and other sx at [facility]. Blood work was checked and he was found to be diabetic. He was not hospitalized at that time and actually states he has never been hospitalized for his DM. He was placed on insulin on initial dx, however this was stopped. He was later put on metformin, which he states he took for 2 years , but self d/c'd this about 2 years ago. He does not check his blood sugars at all and has not been on any medication for his DM over the last 2 years. Agree with HPI/ROS as noted. General Appearance: WD/WN, no apparent distress Respiratory: no respiratory distress, no accessory muscle use Cardiovascular: normal peripheral pulses, regular rate, rhythm Gastrointestinal: non tender, soft Extremities: non-tender, no pedal edema Neurologic/Psychiatric: alert, normal mood/affect Skin Characteristics: normal color, warm/dry Assessment/Plan Resident Physician Supervision Note: I discussed the case with the resident and agree with the findings and plan as documented in the note. Any exceptions or clarifications are listed here: Pt with hx of DM and medical noncompliance who was a transfer from [facility] for DKA Improving on insulin gtt PRP noted Ongoing management Flu +, on tamiflu Pt will need extensive DM education Documented By: Lillie Souza
[2016-10-24] MEDS: INSULIN ASPART 100 UNITS/ML 3 ML PEN SC SCH ×3 (12:17→21:00)
[2016-10-24] MEDS ORDERED: [UNRECOGNIZED DRUG - REMARK] ONE (13:00)
[2016-10-24 13:12] LABS: BUN/CREATININE RATIO 13.2 (10-20); CALCIUM 8.3 mg/dl (8.5-10.1); CREATININE 0.99 mg/dl (0.60-1.40); POTASSIUM 3.8 mmol/L (3.5-5.1)
[2016-10-24 13:48] LABS: CHOLESTEROL/HDL RATIO 4.2
[2016-10-24] MEDS ORDERED: LACTATED RINGER'S 1000ML 1,000 ML IV ONE (14:30)
--- NOTE | 2016-10-24 14:52 | Pharmacy Progress Note ---
Glycemic Control Intl Consult Date of Service Oct 24, 2016. Scope Glycemic Pharmacist consulted for glycemic control and to write orders per [facility] inpatient glycemic control protocol Objective Weight (Kilograms): 65.200 Accuchecks BSG (last 24hrs): Test 10/23/16 23:55 10/24/16 00:30 10/24/16 01:09 10/24/16 02:03 Random Glucose 240 mg/dl (70-99) Bedside Glucose 264 mg/dl (70-99) 243 mg/dl (70-99) 273 mg/dl (70-99) Test 10/24/16 02:58 10/24/16 04:07 10/24/16 04:13 10/24/16 05:23 Bedside Glucose 255 mg/dl (70-99) 236 mg/dl (70-99) 248 mg/dl (70-99) Random Glucose 265 mg/dl (70-99) Test 10/24/16 05:59 10/24/16 08:03 10/24/16 08:07 10/24/16 09:06 Bedside Glucose 248 mg/dl (70-99) 275 mg/dl (70-99) 281 mg/dl (70-99) Random Glucose 275 mg/dl (70-99) Test 10/24/16 10:07 10/24/16 11:23 10/24/16 12:13 Bedside Glucose 228 mg/dl (70-99) 133 mg/dl (70-99) Random Glucose 139 mg/dl (70-99) Laboratory Data (last 24hrs) Test 10/23/16 23:55 10/24/16 04:13 10/24/16 08:03 10/24/16 12:13 Anion Gap 15.0 mmol/L 12.0 mmol/L 11.0 mmol/L 11.0 mmol/L BUN/Creatinine Ratio 14.8 13.2 13.3 13.2 Blood Urea Nitrogen 19 mg/dl 17 mg/dl 15 mg/dl 13 mg/dl Creatinine 1.30 mg/dl 1.30 mg/dl 1.10 mg/dl 0.99 mg/dl Hemoglobin A1c 12.4 % Potassium Level 4.3 mmol/L 4.2 mmol/L 3.9 mmol/L 3.8 mmol/L Sodium Level 139 mmol/L 137 mmol/L 134 mmol/L 136 mmol/L White Blood Count 8.11 K/uL 6.65 K/uL Red Blood Count 4.80 M/uL 4.58 M/uL Hemoglobin 13.9 g/dL 13.3 g/dL Hematocrit 38.1 % 37.2 % Mean Corpuscular Volume 79.4 fL 81.2 fL Mean Corpuscular Hemoglobin 29.0 pg 29.0 pg Mean Corpuscular Hemoglobin Concent 36.5 g/dl 35.8 g/dl Platelet Count 166 K/uL 158 K/uL Mean Platelet Volume 9.3 fL 10.0 fL Neutrophils (%) (Auto) 74.9 % 74.4 % Lymphocytes (%) (Auto) 14.4 % 16.2 % Monocytes (%) (Auto) 10.5 % 9.0 % Eosinophils (%) (Auto) 0.0 % 0.0 % Basophils (%) (Auto) 0.0 % 0.2 % Neutrophils # (Auto) 6.07 K/uL 4.95 K/uL Lymphocytes # (Auto) 1.17 K/uL 1.08 K/uL Monocytes # (Auto) 0.85 K/uL 0.60 K/uL Eosinophils # (Auto) 0.00 K/uL 0.00 K/uL Basophils # (Auto) 0.00 K/uL 0.01 K/uL HbA1c Test 10/23/16 23:55 Hemoglobin A1c 12.4 % (4.5-5.6) H Recent Pertinent Medications Outpatient Anti-diabetic Regimen: * n/a, non-compliant Assessment & Plan ASSESSMENT: * 31yo DMT2? 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 Pt diagnosed at age 15 but is non-compliant with outpatient antidiabetic regimen. * Pt initiated on IV insulin infusion per DKA protocol secondary to non- compliance and illness/infection (influenza B) * Pt with moderate DKA per aterial pH, serum bicarbonate, and AG * Hyperglycemia resolving with IV insulin infusion, request from trim setter to transition from IV to SQ insulin regimen * Since true insulin needs are unknown and drip rates may be skewed d/t short duration on drip will utilize weight based insulin dosing and titrate based on BSG trends. * Phos at critical low @ 1.2mg/dl * Phosphate replacement is NOT recommended, can lead to severe hypocalcemia: may use in patients with severe hypophosphatemia * D/W biomedical equipment support specialist --> give bolus of KPhos 30mmol x 1 * ADA & AACE recommend a goal blood sugar range 140-180 mg/dl for the majority of critically ill & non-critically ill patients. However, more stringent targets may be selected in individual cases. PLAN FOR INPATIENT GLYCEMIC CONTROL: * Transition off of IV insulin infusion * Lower goal range to Goal Range 140 - 180 mg/dl this AM as BSGs stabilizing ~ 230mg/dl and AG trending downwards. Pt ordered full diet as well. * Regarding IVF: Continue IVF as ordered per protocol * Initial fluid therapy is directed toward expansion of the intravascular, interstitial, and intracellular volume, all of which are reduced in hyperglycemic crises and cheondoism of renal perfusion. Adequate hydration increases insulin sensitivity. * Prevent Hypoglycemia: Incorporate 5% dextrose to replacement fluids to allow continued insulin administration until ketonemia is controlled while at the same time avoiding hypoglycemia. Change IVF to incorporate dextrose when BSG reaches ordered goal range. Continue until metabolic abnormalities resolved. Pt with poor PO intake today, if PO intake does not improve, recommend adding d5W back into maintenance IVF. May need to resume IV insulin infusion if severe rebound hyperglycemia occurs. * Prevention of Hypokalemia: Change IVF to incorporate potassium when serum K+ falls below the upper limit of normal for lab (5.1 mmol/L) * Start Basal insulin with Lantus 15 units (~0.2units/kg) SQ daily. Will add PRN dose of Lantus 10 units this evening if BSG > 200mg/dl * Correctional Insulin with NOVOLOG per scale ACHS or Q6hrs while NPO * Goal Range: Low 140 mg/dL - High 180 mg/dL * Correction Factor: 20 mg/dL/unit * Nutritional / Prandial insulin per carb ratio of 1 unit per 7 grams CHO consumed * Please note that the plan above was derived based on current level of insulin resistance and hospital stress. These recommendations are appropriate for inpatient admission only. Plan of care upon discharge will need to be reassessed to avoid potential outpatient hypo/hyperglycemia. Thank you.
[2016-10-24 16:32] LABS: BUN/CREATININE RATIO 13.3 (10-20); CALCIUM 7.3 mg/dl (8.5-10.1); CREATININE 0.91 mg/dl (0.60-1.40); MAGNESIUM 1.7 mg/dl (1.8-2.4)
[2016-10-24] MEDS ORDERED: ALBUTEROL 0.083% NEBU SOLN 3 ML VIAL INH PRN (19:30)
[2016-10-24] MEDS ORDERED: INSULIN GLARGINE SOLOSTAR 100 UNITS/ML 3 ML PEN SC SCH (21:00)
[2016-10-24 22:44] LABS: BUN/CREATININE RATIO 13.1 (10-20); CALCIUM 7.6 mg/dl (8.5-10.1); CREATININE 0.94 mg/dl (0.60-1.40); MAGNESIUM 1.9 mg/dl (1.8-2.4); PHOSPHORUS 1.6 mg/dl (2.5-4.9); POTASSIUM 3.4 mmol/L (3.5-5.1)
[2016-10-25] VITALS (22 sets, daily range): BP systolic 106–115; BP diastolic 66–79; PULSE 84–112; TEMP 36.9–37.1; O2SAT 93–97
[2016-10-25] MEDS: POTASSIUM CHLR 10 MEQ / WTR 10 MEQ in PREMIXED WATER 100 ML IV SCH ×2 (00:36→00:37)
[2016-10-25] MEDS ORDERED: POTASSIUM PHOSPHATE INJ 21 MMOL in SODIUM CHLORIDE 0.9% 500ML 500 ML IV SCH (02:30)
[2016-10-25 02:45] LABS: BUN/CREATININE RATIO 12.8 (10-20); CALCIUM 7.4 mg/dl (8.5-10.1); CREATININE 0.84 mg/dl (0.60-1.40)
[2016-10-25] MEDS: NSS + 20MEQ KCL 1000ML 1,000 ML IV SCH ×3 (05:40→18:11)
[2016-10-25] MEDS: HEPARIN SOD 5000 UNIT/0.5 ML CARP SQ SCH ×3 (06:00→21:01)
[2016-10-25 06:08] LABS: BASO % 0.3 %; BASO ABS # 0.02 K/uL (0-0.2); COMPLETE YES; EOS % 0.2 %; HEMATOCRIT 34.8 % (42-52); IG% 0.3 %; LYMPH % 39.3 %; LYMPH ABS # 2.26 K/uL (1.2-3.4); MEAN CELL VOLUME 80.6 fL (80-100); MEAN CORPUSCULAR HEMOGLOBIN 28.9 pg (25-34); MEAN CORPUSCULAR HGB CONC 35.9 g/dl (32-36); MEAN PLATELET VOLUME 9.4 fL (7.4-10.4); MONO % 8.5 %; NEUT % 51.4 %; PLATELET COUNT 138 K/uL (130-400); RED BLOOD COUNT 4.32 M/uL (4.7-6.1); WHITE BLOOD COUNT 5.75 K/uL (4.8-10.8)
[2016-10-25 06:45] LABS: BUN/CREATININE RATIO 10.5 (10-20); CALCIUM 7.9 mg/dl (8.5-10.1); CREATININE 0.89 mg/dl (0.60-1.40); POTASSIUM 3.9 mmol/L (3.5-5.1)
[2016-10-25] MEDS: OSELTAMIVIR PHOSPHATE 75 MG CAP PO SCH ×2 (08:05→20:51)
[2016-10-25] MEDS: INSULIN GLARGINE SOLOSTAR 100 UNITS/ML 3 ML PEN SC SCH (08:08)
[2016-10-25] MEDS: INSULIN ASPART 100 UNITS/ML 3 ML PEN SC SCH ×4 (08:09→21:00)
--- NOTE | 2016-10-25 09:29 | Pharmacy Progress Note ---
Glycemic Control: Progress Nt Date of Service Oct 25, 2016. Scope Glycemic Pharmacist consulted for glycemic control and to write orders per [facility] inpatient glycemic control protocol. Objective Accuchecks BSG (last 24hrs): Test 10/24/16 10:07 10/24/16 11:23 10/24/16 12:13 10/24/16 16:07 Bedside Glucose 228 mg/dl (70-99) 133 mg/dl (70-99) Random Glucose 139 mg/dl (70-99) 221 mg/dl (70-99) Test 10/24/16 16:22 10/24/16 20:56 10/24/16 21:05 10/25/16 02:00 Bedside Glucose 212 mg/dl (70-99) 153 mg/dl (70-99) Random Glucose 177 mg/dl (70-99) 182 mg/dl (70-99) Test 10/25/16 05:55 Random Glucose 167 mg/dl (70-99) Laboratory Data (last 24hrs) Test 10/24/16 12:13 10/24/16 16:07 10/24/16 21:05 10/25/16 02:00 Anion Gap 11.0 mmol/L 11.0 mmol/L 14.0 mmol/L 11.0 mmol/L BUN/Creatinine Ratio 13.2 13.3 13.1 12.8 Blood Urea Nitrogen 13 mg/dl 12 mg/dl 12 mg/dl 11 mg/dl Creatinine 0.99 mg/dl 0.91 mg/dl 0.94 mg/dl 0.84 mg/dl Potassium Level 3.8 mmol/L 4.0 mmol/L 3.4 mmol/L 4.0 mmol/L Sodium Level 136 mmol/L 135 mmol/L 137 mmol/L 137 mmol/L Test 10/25/16 05:55 Anion Gap 12.0 mmol/L BUN/Creatinine Ratio 10.5 Blood Urea Nitrogen 9 mg/dl Creatinine 0.89 mg/dl Potassium Level 3.9 mmol/L Sodium Level 138 mmol/L White Blood Count 5.75 K/uL Red Blood Count 4.32 M/uL Hemoglobin 12.5 g/dL Hematocrit 34.8 % Mean Corpuscular Volume 80.6 fL Mean Corpuscular Hemoglobin 28.9 pg Mean Corpuscular Hemoglobin Concent 35.9 g/dl Platelet Count 138 K/uL Mean Platelet Volume 9.4 fL Neutrophils (%) (Auto) 51.4 % Lymphocytes (%) (Auto) 39.3 % Monocytes (%) (Auto) 8.5 % Eosinophils (%) (Auto) 0.2 % Basophils (%) (Auto) 0.3 % Neutrophils # (Auto) 2.95 K/uL Lymphocytes # (Auto) 2.26 K/uL Monocytes # (Auto) 0.49 K/uL Eosinophils # (Auto) 0.01 K/uL Basophils # (Auto) 0.02 K/uL HbA1c: Test 10/23/16 23:55 Hemoglobin A1c 12.4 % (4.5-5.6) H Recent Pertinent Medications Outpatient Anti-diabetic Regimen: * n/a, non-compliant Assessment & Plan ASSESSMENT: * 31yo DMT2? male with n/v/abd pain x 1 week [employer]. Pt diagnosed at age 15 but is non-compliant with outpatient antidiabetic regimen. * Pt initiated on IV insulin infusion per DKA protocol secondary to non- compliance and illness/infection (influenza B) * Pt with moderate DKA per arterial pH, serum bicarbonate, and AG * Pt transitioned from IV insulin infusion to SQ basal bolus regimen 10/24 AM * Pt has received 26 units of SQ insulin + IV insulin infusion over the past 24hrs. * BSGs adequately controlled with current regimen; BSG slightly elevated prior to dinner yesterday (212mg/dl) d/t pt eating cookies w/o coverage [Ordnance Artificer encouraged PO intake instead of adding dextrose to IVF] * AM fasting BSG slightly above goal range at 153mg/dl--> expect this to trend down over the next few days as Lantus approaches steady state. Additionally, do not want to maintain BSGs too low as pt may feel symptoms of hypo at otherwise normal BSGs d/t elevated A1c. * ADA & AACE recommend a goal blood sugar range 140-180 mg/dl for the majority of critically ill & non-critically ill patients. However, more stringent targets may be selected in individual cases. Will utilize slightly more stringent goal range of 120-150mg/dl based on age. PLAN FOR INPATIENT GLYCEMIC CONTROL: No changes needed to regimen at this time. Continue current dosing. * Basal insulin with Lantus 15 units (~0.2units/kg) SQ daily * Titrate dosing slowly/conservatively to a goal AM fasting of ~ 100mg/dl * Prandial/Correctional Insulin with NOVOLOG per scale ACHS or Q6hrs while NPO * Goal Range: Low 120 mg/dL - High 150 mg/dL * Correction Factor: 20 mg/dL/unit * Nutritional / Prandial insulin per carb ratio of 1 unit per 7 grams CHO consumed * A1c added to discharge instructions to be communicated to PCP Looking ahead to discharge: * A1c = 12.4% Patient will need combination injectable therapy at discharge + oral agents * Discussed diabetes medication history with patient. Pt states that he has previous been treated with metformin + insulin. Stopped taking both secondary to lack of follow up with doctor. Is willing to resume metformin + insulin at discharge. Will need to work with criminal justice social worker to determine insulin coverage at discharge. * Recommend Metformin XR 500mg PO daily taken with the evening meal. Typically the XR formulation of metformin is better tolerate (GI hernandez) than the IR formulation. Continue to titrate metformin dosing by 500mg weekly as tolerated up to 2,000mg/day. * Depending on insurance coverage, recommend either Lantus + NovoLog versus ReliON Novolin 70/30 premixed insulin * Lantus 15 units SQ daily + NovoLog 10 units SQ with the largest meal of the day OR * ReliON Novolin 70/30 20 units SQ daily with the morning meal + 10 units SQ daily with evening meal * Please note that the plan above was derived based on current level of insulin resistance and hospital stress. These recommendations are appropriate for inpatient admission only. Plan of care upon discharge will need to be reassessed to avoid potential outpatient hypo/hyperglycemia. Thank you.
[2016-10-25] MEDS ORDERED: GUAIFENESIN SUGAR FREE 100 MG/5 ML UDC PO PRN (10:30)
--- NOTE | 2016-10-25 11:50 | Family Medicine Progress Note ---
Progress Note Date of Service Oct 25, 2016. Subjective Pt evaluation today including: conversation w/ patient, physical exam, chart review, lab review Pain: Denies Voiding: no voiding problems Patient was seen at the bedside. He states that he is feeling better than yesterday. His appetite has improved. Still feel weak and have cough but improving. Denies abdominal pain, nausea, vomiting, SOB or chest pain. Tolerating PO intake well. Constitutional: + weakness, No chills, No fever Respiratory: + cough, + sputum, No dyspnea at rest, No shortness of breath, No wheezing Cardiovascular: No chest pain, No edema Abdomen: No constipation, No diarrhea, No nausea, No pain, No vomiting Musculoskeletal: + muscle pain Male : No dysuria Skin: No rash Medications Current Inpatient Medications Medications (Trade) Dose Ordered Sig/Dasha Route Start Time Stop Time Status Last Admin Dose Admin Glucose (Glucose 40% Gel) UD PRN PO 10/23/16 23:45 11/22/16 23:44 Glucose (Glucose Chew Tab) 1 tabs UD PRN PO 10/23/16 23:45 11/22/16 23:44 Dextrose (Dextrose 50% 50ML Syringe) 50 ml UD PRN IV 10/23/16 23:45 11/22/16 23:44 Glucagon (Glucagon Inj) 1 mg UD PRN SQ 10/23/16 23:45 11/22/16 23:44 Miscellaneous Information (Consult Glycemic Management Pharmacy) 1 ea UD PRN N/A 10/24/16 01:21 11/23/16 01:20 Heparin Sodium (Porcine) (Heparin Sq 5000 Unit/0.5ml) 5,000 unit Q8 SQ 10/24/16 06:00 11/23/16 01:29 10/24/16 14:38 5,000 UNIT Acetaminophen (Tylenol Tab) 650 mg Q4H PRN PO 10/24/16 01:30 11/23/16 01:29 10/25/16 00:15 650 MG Oseltamivir Phosphate 75 mg 75 mg BID PO 10/24/16 09:00 10/29/16 08:59 10/25/16 08:05 75 MG Potassium Chloride/Sodium Chloride (Nss + 20meq KCl 1000ml) 1,000 ml @ 100 mls/hr Q10H IV 10/24/16 09:30 11/23/16 09:29 10/25/16 08:11 100 MLS/HR Insulin Aspart (novoLOG ASPART) SLIDING SCALE ACHS SC 10/24/16 11:00 11/23/16 10:59 10/25/16 08:09 6 UNITS Insulin Glargine (Lantus Solostar Pen) 15 unit DAILY SC 10/25/16 09:00 11/24/16 08:59 10/25/16 08:08 15 UNIT Albuterol Sulfate (Ventolin 0.083% 2.5MG/3ML Neb) 2.5 mg Q4H PRN INH 10/24/16 19:30 11/23/16 19:29 10/24/16 19:50 2.5 MG Guaifenesin (Robitussin Sugar Free Syrup) 100 mg Q6H PRN PO 10/25/16 10:30 11/24/16 10:29 10/25/16 11:08 100 MG Objective Vital Signs Date Time Temp Pulse Resp B/P Pulse Ox O2 Delivery O2 Flow Rate FiO2 10/25/16 08:00 95 Room Air 10/25/16 04:01 37.1 84 16 106/72 96 10/25/16 04:00 97 Room Air 10/25/16 00:00 97 Room Air 10/24/16 23:32 38.4 94 20 117/76 97 Room Air 10/24/16 20:00 97 Room Air 10/24/16 19:51 87 16 97 Room Air 10/24/16 19:19 37.3 93 17 111/73 97 10/24/16 15:59 94 Room Air 10/24/16 12:00 96 Room Air Physical Exam General Appearance: WD/WN, no apparent distress Neck: supple, trachea midline Respiratory/Chest: chest non-tender, lungs clear, no respiratory distress, no accessory muscle use Cardiovascular: regular rate, rhythm, no edema, no murmur Abdomen: normal bowel sounds, non tender, soft Extremities: non-tender, no pedal edema Neurologic/Psychiatric: alert, normal mood/affect, oriented x 3 Skin: normal color, warm/dry, no rash Laboratory Results Results Past 24 Hours Test 10/24/16 12:13 10/24/16 16:07 10/24/16 16:22 10/24/16 20:56 Range/Units Venous Blood pH 7.32 7.38 7.36-7.41 Sodium Level 136 135 136-145 mmol/L Potassium Level 3.8 4.0 3.5-5.1 mmol/L Chloride Level 109 107 98-107 mmol/L Carbon Dioxide Level 16 17 21-32 mmol/L Anion Gap 11.0 11.0 3-11 mmol/L Blood Urea Nitrogen 13 12 7-18 mg/dl Creatinine 0.99 0.91 0.60-1.40 mg/dl Est Creatinine Clear Calc Drug Dose 90.6 98.5 ml/min Estimated GFR () 117.1 129.7 Estimated GFR (Non- 101.1 111.9 BUN/Creatinine Ratio 13.2 13.3 10-20 Random Glucose 139 221 70-99 mg/dl Calcium Level 8.3 7.3 8.5-10.1 mg/dl Phosphorus Level 2.0 2.0 2.5-4.9 mg/dl Magnesium Level 2.0 1.7 1.8-2.4 mg/dl Triglycerides Level 433 0-150 mg/dl Cholesterol Level 164 0-200 mg/dl HDL Cholesterol 39 mg/dl LDL Cholesterol, Calculated mg/dl VLDL Cholesterol, Calculated mg/dl Cholesterol/HDL Ratio 4.2 Bedside Glucose 212 153 70-99 mg/dl Test 10/24/16 21:05 10/25/16 02:00 10/25/16 05:55 Range/Units Venous Blood pH 7.36 7.36-7.41 Sodium Level 137 137 138 136-145 mmol/L Potassium Level 3.4 4.0 3.9 3.5-5.1 mmol/L Chloride Level 107 107 106 98-107 mmol/L Carbon Dioxide Level 16 19 20 21-32 mmol/L Anion Gap 14.0 11.0 12.0 3-11 mmol/L Blood Urea Nitrogen 12 11 9 7-18 mg/dl Creatinine 0.94 0.84 0.89 0.60-1.40 mg/dl Est Creatinine Clear Calc Drug Dose 95.4 106.8 100.8 ml/min Estimated GFR () 124.7 135.2 132.1 Estimated GFR (Non- 107.6 116.7 113.9 BUN/Creatinine Ratio 13.1 12.8 10.5 10-20 Random Glucose 177 182 167 70-99 mg/dl Calcium Level 7.6 7.4 7.9 8.5-10.1 mg/dl Phosphorus Level 1.6 3.0 2.5-4.9 mg/dl Magnesium Level 1.9 2.0 1.8-2.4 mg/dl White Blood Count 5.75 4.8-10.8 K/uL Red Blood Count 4.32 4.7-6.1 M/uL Hemoglobin 12.5 14.0-18.0 g/dL Hematocrit 34.8 42-52 % Mean Corpuscular Volume 80.6 80-100 fL Mean Corpuscular Hemoglobin 28.9 25-34 pg Mean Corpuscular Hemoglobin Concent 35.9 32-36 g/dl Platelet Count 138 130-400 K/uL Mean Platelet Volume 9.4 7.4-10.4 fL Neutrophils (%) (Auto) 51.4 % Lymphocytes (%) (Auto) 39.3 % Monocytes (%) (Auto) 8.5 % Eosinophils (%) (Auto) 0.2 % Basophils (%) (Auto) 0.3 % Neutrophils # (Auto) 2.95 1.4-6.5 K/uL Lymphocytes # (Auto) 2.26 1.2-3.4 K/uL Monocytes # (Auto) 0.49 0.11-0.59 K/uL Eosinophils # (Auto) 0.01 0-0.5 K/uL Basophils # (Auto) 0.02 0-0.2 K/uL RDW Standard Deviation 37.3 36.4-46.3 fL RDW Coefficient of Variation 12.7 11.5-14.5 % Immature Granulocyte % (Auto) 0.3 % Immature Granulocyte # (Auto) 0.02 0.00-0.02 K/uL Assessment and Plan This is a 31 y/o male with history of DM presented to the ED from [facility] with DKA. Influenza was positive, stared on Tamiflu. Patient is on SQ insulin and sliding scale. Patient is clinically improving. 1. Diabetics Ketoacidosis - Most likely 2/2 to medical non complacence and illness (influenza) - On DKA protocol - Glycemic Consult is in placed and pharmacy is following - S/p Insulin drip - On Lantus and sliding scale - On NSS+20 meq KCL @100mls/hr - Given received phosphate supplement overnight. - BMP tomorrow am and replete electrolytes if needed 2. DM - Patient states that he was diagnosed with type II DM about 12 yrs ago. He was on Metformin couple of yrs ago and stop randomly - Continue with Insulin and Sliding scale - HgbA1c 12.4 - Patient will probably need education and training prior to d/c 3. Influenza - Patient is positive for Influenza B - C/w Tamiflu 75mg BID 4. DVT prophylaxis - Heparin 5. Code Status - Full code Reviewed: Pt Seen/Exam by Me History Pt feeling ongoing improvement. No return of n/v, abd pain. No chest pain or SOB. Tolerating PO without issue. Agree with HPI/ROS as noted. General Appearance: WD/WN, no apparent distress Respiratory: normal breath sounds, no respiratory distress Cardiovascular: normal peripheral pulses, regular rate, rhythm Gastrointestinal: non tender, soft Extremities: non-tender, no pedal edema Neurologic/Psychiatric: alert, normal mood/affect, oriented x 3 Skin Characteristics: normal color, warm/dry Assessment/Plan Resident Physician Supervision Note: I discussed the case with the resident and agree with the findings and plan as documented in the note. Any exceptions or clarifications are listed here: Pt with hx of DM and medical noncompliance who was a transfer from [facility] for DKA Stable off insulin gtt and with transition to lantus with SSI Flu +, on tamiflu Pt will need extensive DM education Documented By: Lillie Souza
[2016-10-25] MEDS ORDERED: DEXTROMETHORPHAN POLYMR COMPLX 60 MG/10 ML UDP PO ONE (15:00)
--- NOTE | 2016-10-25 19:54 | Progress Note ---
Post ICU Progress Note Date & Time Oct 25, 2016 at 19:54 Vital Signs Vital Signs Past 12 Hours Date Time Temp Pulse Resp B/P Pulse Ox O2 Delivery O2 Flow Rate FiO2 10/25/16 18:01 84 19 113/77 94 10/25/16 18:00 85 14 94 10/25/16 17:31 97 17 115/74 96 10/25/16 17:00 98 20 93 10/25/16 16:10 96 Room Air 10/25/16 16:00 89 14 95 10/25/16 15:01 36.9 94 26 115/79 96 Room Air 10/25/16 15:00 100 25 96 10/25/16 14:01 112 23 109/68 95 10/25/16 14:00 108 17 96 10/25/16 12:50 99 25 115/66 10/25/16 11:40 95 Room Air 10/25/16 11:13 36.9 95 15 113/71 10/25/16 11:00 92 26 94 10/25/16 09:30 96 26 95 10/25/16 09:00 89 17 96 10/25/16 09:00 89 17 96 10/25/16 08:30 100 30 95 10/25/16 08:00 101 24 97 10/25/16 08:00 95 Room Air Notes Mental Status: alert / awake, participated in evaluation Nausea / Vomiting: adequately controlled Pain: adequately controlled Airway Patency, RR, SpO2: stable & adequate BP & HR: stable & adequate Brandt Wheeler is a 31-year-old male who presented to [facility] and was transferred to [facility] ICU on 10/23/2016 for intractable nausea and hyperglycemia which proved to be DKA and influenza B. Patient was received stable in the ICU underwent fluid resuscitation with additional potassium and an insulin drip. His glucose levels did not initially correct but were very labile. Patient arrives stating he had been diagnosed with diabetes 12 years prior but had never taken any type of diabetic medication. He did recall however receiving insulin to lower his blood glucose quickly on the day of his diagnosis. Patient was downgraded from ICU status the following day after being transitioned to subcutaneous insulin. He did not require invasive monitoring such as central lines arterial lines, or intubation of any sort. Upon transfer today from PCU, the patient's glucose is still slightly elevated ranging from 132-182 in the last 24 hours. Patient did state that he had spoken with pharmacy in regards to medication, but states he has not received any diabetic education otherwise. He was resting comfortably in bed still in the ICU floor this evening. He denied any worsening of shortness of breath, nausea, vomiting, abdominal pain. He denied fevers or chills. Overall he states that he is feeling improved. There were no acute physical exam findings. Consider outpatient follow up in 1 to 2 weeks with: Suggest patient obtains primary care physician for close monitoring of diabetes Repeat imaging needed: Not applicable Follow up cultures: Not applicable Reviewed progress notes, labs, and inpatient medication list Continue current management Additional recommendations:Consult ict educator Patient is hemodynamically stable and thus critical care will sign off. Thank you for including us in the care of this patient, please feel free to reconsult as needed. Consults & Procedures Consultants: Glycemic control Critical care medicine: Kenji Procedures: Not applicable
[2016-10-25] MEDS: DEXTROMETHORPHAN POLYMR COMPLX 60 MG/10 ML UDP PO SCH (20:50)
[2016-10-26 00:53] VITALS: BP 113/74; PULSE 87; TEMP 36.8; O2SAT 97
[2016-10-26] MEDS: NSS + 20MEQ KCL 1000ML 1,000 ML IV SCH (05:14)
[2016-10-26] MEDS: HEPARIN SOD 5000 UNIT/0.5 ML CARP SQ SCH ×2 (05:15→12:10)
[2016-10-26 06:03] LABS: HEMATOCRIT 32.1 % (42-52); MEAN CELL VOLUME 78.1 fL (80-100); MEAN CORPUSCULAR HEMOGLOBIN 28.7 pg (25-34); MEAN CORPUSCULAR HGB CONC 36.8 g/dl (32-36); MEAN PLATELET VOLUME 9.8 fL (7.4-10.4); PLATELET COUNT 133 K/uL (130-400); RED BLOOD COUNT 4.11 M/uL (4.7-6.1); WHITE BLOOD COUNT 5.99 K/uL (4.8-10.8)
[2016-10-26 06:31] LABS: BUN/CREATININE RATIO 12.2 (10-20); CALCIUM 8.1 mg/dl (8.5-10.1); CREATININE 0.71 mg/dl (0.60-1.40); MAGNESIUM 2.2 mg/dl (1.8-2.4); POTASSIUM 3.8 mmol/L (3.5-5.1)
[2016-10-26 06:39] LABS: PHOSPHORUS 2.4 mg/dl (2.5-4.9)
[2016-10-26 07:48] VITALS: BP 120/72; PULSE 79; TEMP 36.7; O2SAT 97
[2016-10-26] MEDS: OSELTAMIVIR PHOSPHATE 75 MG CAP PO SCH (07:48)
[2016-10-26] MEDS: DEXTROMETHORPHAN POLYMR COMPLX 60 MG/10 ML UDP PO SCH (07:48)
[2016-10-26] MEDS: INSULIN ASPART 100 UNITS/ML 3 ML PEN SC SCH ×3 (07:52→18:06)
[2016-10-26] MEDS: POT PHOSPHATE MONOBASIC W/ SOD TAB PO SCH ×3 (07:53→16:58)
[2016-10-26] MEDS: INSULIN GLARGINE SOLOSTAR 100 UNITS/ML 3 ML PEN SC SCH (07:53)
[2016-10-26 08:34] VITALS: O2SAT 94
--- NOTE | 2016-10-26 11:24 | Family Medicine Progress Note ---
Progress Note Date of Service Oct 26, 2016. Subjective Pt evaluation today including: conversation w/ patient, physical exam, chart review, lab review The patient was seen and examined at bedside. No acute overnight events. 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 Will need paperwork before going. Patient is resting comfortably in bed. Denies having any pain. Pt's flu was positive and patient is coughing. No other complaints. Plan of care was described to the patient and all questions were answered. Constitutional: No chills, No fever, No sweats Respiratory: + cough, No shortness of breath, No sputum, No wheezing Cardiovascular: No PND, No chest pain, No edema, No orthopnea Abdomen: No nausea, No pain Neurologic: No memory loss Psychiatric: No depression symptoms Objective Physical Exam General Appearance: WD/WN, no apparent distress Respiratory/Chest: chest non-tender, no respiratory distress, no accessory muscle use, + pertinent finding (Pt was expiratory wheezing bilaterally. 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 Patient was feeling sick. Influenza was positive, stared on Tamiflu. Patient is on SQ insulin and sliding scale. Patient is clinically improving. Diabetic education given - pt was stressed about the importance of controlling blood sugars. Discharged on Tamiflu, Metformin 1000mg BID, Glucometer + Test Strips and Appropriate follow up with primary care. Diabetics Ketoacidosis 2/2 Uncontrolled DM2 - Pt is doing well clinically. DM2 was diagnosed around 10 years ago. Pt stopped taking metformin a long time ago. - Glycemic Consult is in place. BS well controlled over 24 hours. 15units Lantus daily + Novolog per carb counting and ISS (16 units received over 24 hours). - Electrolytes WNL, will give 3 tabs of Neutraphos today (Phosphate was 2.4) - Continue to monitor glucose and BMP. DM (likely Type 2) - HgbA1c 12.4. Patient explained the adverse affects of uncontrolled hyperglycemia. Current management as per above. Diabetic Education today. - Likely Discharge on Metformin 1000mg BID and Glucose Test Strips, pt educated on post prandial sugar monitoring. Influenza - Patient is positive for Influenza B. Contact precautions. - C/w Tamiflu 75mg BID DVT prophylaxis - Heparin SQ TID. Code Status - Full code Resident Involvement: Resident Care Provided Care Provided: Adult Hospital Medicine
[2016-10-26] MEDS ORDERED: TMF75 PO (13:26)
[2016-10-26] MEDS ORDERED: METF-384 PO (13:26)
--- NOTE | 2016-10-26 13:52 | Discharge Instructions ---
Discharge Instructions Date of Service Oct 26, 2016. Admission Reason for Admission: DKA Discharge Discharge Diagnosis / Problem: Diabetic Ketoacidosis Discharge Goals Goal(s): Decrease discomfort, Improve function, Improve disease control, Improve nutritional status, Learn about illness, Prevent Disease Progression Activity Recommendations Activity Limitations: resume your previous activity . Instructions / Follow-Up Instructions / Follow-Up We have arranged a follow up appointment with Dr. Ap Alvarez, Family Medicine on WednesdayJune 06 at 1:50pm. The address of the clinic is [address] [place] [address], [address], [place], [place]. (The building next door to the hospital). You are expected to bring your sugar log book to this appointment so you can review your sugar levels at this visit. Sugar Log Book - We recommend that you check your blood sugar two hours after every meal and record the numbers. Record the date and time of your meal and jot down what you ate. Diet We recommend you eat a health diet moving forward. Stay away from simple sugars such as Coca Cola, Pepsi, Barnes Juice and Sweets. Items such as breads , pizza and pasta also contain a lot of carbohydrates and can increase your blood sugar levels. We recommend water is the main source of hydration. Exercise Please exercise at least 30 minutes a day of exercise (to the point where you are unable to carry on a conversation) at least 5 days per week. Medications You are advised to take your Metformin 1000mg twice a day. Be advised that Metformin can irritate your stomach. We advise that you take your Metformin with meals to decrease stomach discomfort. Current Hospital Diet Patient's current hospital diet: Diabetes Type 1 Diet Discharge Diet Recommended Diet: AHA Diet (Heart Healthy) Pending Studies Studies pending at discharge: no Laboratory Results Hemoglobin A1c Test 10/23/16 23:55 Range/Units Estimated Average Glucose 309 mg/dl Hemoglobin A1c 12.4 H 4.5-5.6 % Lipid Panel Test 10/24/16 12:13 Range/Units Triglycerides Level 433 H 0-150 mg/dl Cholesterol Level 164 0-200 mg/dl HDL Cholesterol 39 mg/dl Cholesterol/HDL Ratio 4.2 LDL Cholesterol, Calculated mg/dl Medical Emergencies . Who to Call and When: Medical Emergencies: If at any time you feel your situation is an emergency, please call 911 immediately. . Non-Emergent Contact Non-Emergency issues call your: Primary Care Provider . . "Provider Documentation" section prepared by Ap Alvarez. VTE Core Measure Inpt VTE Proph given/why not?: Unfractionated heparin SQ Resident Involvement: Resident Care Provided Care Provided: Adult Hospital Medicine
[2016-10-26 14:58] VITALS: BP 120/72; PULSE 79; TEMP 36.7; O2SAT 94
[2016-10-26 15:49] VITALS: BP 113/71; PULSE 85; TEMP 36.8; O2SAT 97
--- NOTE | 2016-10-26 15:54 | Discharge Summary ---
Discharge Summary Date of Service Oct 26, 2016. (Ap Alvarez M.D.) Discharge Summary Admission Date: Oct 24, 2016 at 01:21 Discharge Date: Oct 26, 2016 Discharge Disposition: Home Principal Diagnosis: Diabetic Ketoacidosis (Ap Alvarez M.D.) Medication Reconciliation New Medications: Metformin Hcl (Glucophage) 1,000 Mg Tab 1000 MG PO BID for 30 Days, #6 TAB Oseltamivir Phosphate (Tamiflu) 75 Mg Cap 75 MG PO BID for 3 Days, #6 CAP Discharge Exam Subjective The patient was seen and examined at bedside. No acute overnight events. 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 Will need paperwork before going. Patient is resting comfortably in bed. Denies having any pain. Pt's flu was positive and patient is coughing. No other complaints. Plan of care was described to the patient and all questions were answered. Constitutional: No chills, No fever, No sweats Respiratory: + cough, No shortness of breath, No sputum, No wheezing Cardiovascular: No PND, No chest pain, No edema, No orthopnea Abdomen: No nausea, No pain Neurologic: No memory loss Psychiatric: No depression symptoms Physical Exam General Appearance: WD/WN, no apparent distress Respiratory/Chest: chest non-tender, no respiratory distress, no accessory muscle use, + pertinent finding (Pt has mild expiratory wheezing bilaterally. 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 Patient was feeling sick. Influenza nasal swab was positive and the patient was stared on Tamiflu. Hyperglycemia was corrected with an insulin drip and the patient was eventually transitioned to SQ insulin and sliding scale. Patient received extensive diabetic education. The importance of controlling blood sugars was stressed. The patient was discharged on Tamiflu, Metformin 1000mg BID, Glucometer + Test Strips and Appropriate follow up with primary care was arranged. The patient was treated for the following problems: Diabetics Ketoacidosis 2/2 Uncontrolled DM2 - Resolved with insulin. Electrolytes and Blood sugars were normalized. Diabetes Mellitus Type 2 - HgbA1c 12.4. Patient explained the adverse affects of uncontrolled hyperglycemia. Diabetic Education today. - Discharge on Metformin 1000mg BID and Glucose Test Strips, pt educated on post prandial sugar monitoring. Influenza - Patient is positive for Influenza B. Patient was discharged on Tamiflu 75mg BID x 3 days. DVT prophylaxis - Heparin SQ TID. Total Time Spent: Greater than 30 minutes This includes examination of the patient, discharge planning, medication reconciliation, and communication with other providers. (Ap Alvarez M.D.) Resident Physician Supervision Note: I interviewed and examined the patient. Discussed with Dr. Alvarez and agree with findings and plan as documented in the note. Any exceptions or clarifications are listed here: None Documented By: Driss Eli feeling better, wants to go home breathingoK. getting better understanding of how to take care of sugar. extensive discussion on why to care, how to follow sugars, impact of diet vitals noted, labs reviewed nad mmm, breathing unlabored. flu - tamiflu DM - seems to be DM2 w hyperglycemic dehydration - not type 1 appearing. believes was type 2 before. odd given age and not massively obese. check Cpeptide. discharge on metformin, postprandial glucose monitoring, lfesytle changes, close f/u Total Time Spent: Less than 30 minutes (Driss Eli, Carli) Discharge Instructions Please refer to the electronic Patient Visit Report (Discharge Instructions) for additional information. (Ap Alvarez M.D.) Follow-Up Follow up with Dr. Alvarez on November 04, 2016 at 1:50pm. Appointment is confirmed and patient was given appointment information. (Ap Alvarez M.D.) Additional Copies To Ap Alvarez M.D. Resident Involvement: Resident Care Provided Care Provided: Adult [facility] (Ap Alvarez M.D.)
[2016-10-26 16:00] VITALS: O2SAT 97
== END 2016-10-26 18:45 | disposition home or self-care (01) | DRG 639 ==
LOC: ENRESERVTM → ENRESERVDT → C.MSICU 23:20 → UNDOADMIN 23:20 → C.MSICU 10-24 01:21 → C.MS2W 10-25 18:07
PROVIDERS: ADMIT Internal Medicine; ATTEND Family Medicine
DX: E13.10 Other specified diabetes mellitus with ketoacidosis without coma (principal); J45.909 Unspecified asthma, uncomplicated; J11.1 Influenza due to unidentified influenza virus with other respiratory manifestations; E86.0 Dehydration; Z83.3 Family history of diabetes mellitus; Z91.19 Patient's noncompliance with other medical treatment and regimen